=== PATIENT | male | born 1985 | race Caucasian/White ===

== ENCOUNTER 2017-10-06 18:14 | Emergency (ER) | payer OTHER ==
[~2017-10-06] VITALS: Ht 193 cm; Wt 122.5 kg
[2017-10-06 20:01] LABS: BASOPHILS ABSOLUTE AUTO 0.05 K/mm3 (0.00-0.23); BASOPHILS PERCENT AUTO 1 % (0-2); EOSINOPHILS ABSOLUTE AUTO 0.15 K/mm3 (0.00-0.68); EOSINOPHILS PERCENT AUTO 3 % (0-6); Hematocrit 42.1 % (37.0-53.0); Hemoglobin 14.7 g/dL (13.5-17.5); IMMATURE GRAN ABSOLUTE AUTO 0.01 K/mm3 (0.00-0.10); IMMATURE GRAN PERCENT AUTO 0 % (0-1); LYMPHOCYTES ABSOLUTE AUTO 2.11 K/mm3 (0.84-5.20); LYMPHOCYTES PERCENT AUTO 35 % (21-46); MONOCYTES ABSOLUTE AUTO 0.48 K/mm3 (0.16-1.47); MONOCYTES PERCENT AUTO 8 % (4-13); Mean Corpuscular HGB 32.9 pg (26.0-34.0); Mean Corpuscular HGB Conc 34.9 g/dL (31.5-36.5); Mean Corpuscular Volume 94 fL (80-100); Mean Platelet Volume 9.8 fL (9.1-12.4); NEUTROPHILS ABSOLUTE AUTO 3.16 K/mm3 (1.96-9.15); NEUTROPHILS PERCENT AUTO 53 % (41-73); Platelet Count 245 K/mm3 (150-400); RDW Coefficient Variation 11.7 % (11.7-14.2); RDW Standard Deviation 40.3 fL (35.1-46.3); Red Blood Cell Count 4.47 M/mm3 (4.30-5.90); White Blood Cell Count 5.96 K/mm3 (4.00-11.30)
[2017-10-06 20:17] LABS: Anion Gap 11 mmol/L (6-16); Blood Urea Nitrogen 14 mg/dL (8-24); Bun/Creatinine Ratio 15.2 (12.0-20.0); CO2, Blood 22 mmol/L (21-32); Calcium, Blood 8.4 mg/dL (8.5-10.1); Chloride, Blood 105 mmol/L (98-108); Creatinine, Blood 0.92 mg/dL (0.60-1.20); Glomerular Filtration Rate >60 (60-); Glucose, Blood 105 mg/dL (70-99); Potassium, Blood 3.8 mmol/L (3.5-5.5); Sodium, Blood 138 mmol/L (136-145)
== END 2017-10-06 21:40 | disposition home or self-care (01) ==
LOC: ER 18:14
PROVIDERS: Emergency Medicine
DX: M54.5 Low back pain (principal); G89.29 Other chronic pain; Z79.891 Long term (current) use of opiate analgesic; Z79.52 Long term (current) use of systemic steroids
CPT/HCPCS: 36415; 51798; 80048; 85025; 96361; 96374; 96375; 99284; J1100; J1885; J7030

== ENCOUNTER 2017-10-07 11:18 | Emergency (ER) | payer SELFPAY ==
[~2017-10-07] VITALS: Ht 193 cm; Wt 77.1 kg
== END 2017-10-07 11:52 | disposition left against medical advice (07) ==
LOC: ER 11:18
DX: Z53.21 Procedure and treatment not carried out due to patient leaving prior to being seen by health care provider (principal); R11.2 Nausea with vomiting, unspecified; R19.7 Diarrhea, unspecified